=== PATIENT | female | born 1965 | race Caucasian/White ===

== ENCOUNTER 2018-03-31 05:25 | Day surgery (SDC) | payer OTHER, MEDICARE ==
[2018-03-29 14:35] LABS: ANION GAP 12.1 mmol/L (8-16); CARBON DIOXIDE 31.7 mmol/L (21.0-32.0); CREATININE - SERUM 1.1 mg/dL (0.6-1.3); POTASSIUM - SERUM 3.8 mmol/L (3.5-5.1)
[2018-03-29 14:38] LABS: CALCIUM 9.8 mg/dL (8.5-10.1)
[2018-03-29 14:39] LABS: BASOPHILS 0.2 % (0-2); EOSINOPHILS 1.1 % (0-7); HEMATOCRIT 39.6 % (36.0-48.0); HEMOGLOBIN 12.9 g/dL (12-16); IMMATURE GRANULOCYTES 0.1 % (0-5); LYMPHOCYTES 45.7 % (15-50); MCH 27.3 pg (26.0-34.0); MCHC 32.6 g/dL (31.0-37.0); MCV 83.7 fL (80.0-100.0); MEAN PLATELET VOLUME 9.9 fL (7.4-10.4); MONOCYTES 9.2 % (2-11); NEUTROPHILS 43.7 % (40-80); RBC 4.73 10x6/uL (4.00-5.40); RDW 15.4 % (11.5-14.5); WBC 8.3 10x3/uL (4.8-10.8)
[2018-03-29 14:52] LABS: PLATELET COUNT 415 10x3/uL (130-400)
[~2018-03-31] VITALS: Ht 165.1 cm; Wt 86.6 kg
[~2018-03-31 05:25] MED LIST: HYDROCHLOROTH12.5 M1 PO; KLONOPIN1 MG PO; LYRICA100 MG PO; NEURONTIN800 MG PO; OMEPRAZOLE20 M1 PO; OXYCONTIN10 MG PO; OXYCONTIN30 MG PO; PROZAC40 MG PO; TENORMIN25 MG PO; WELLBUTRIN SR150 MG PO; XTAMPZA 36 MG PO; ZANTAC150 MG PO
[2018-03-31 06:26] VITALS: BP 112/61; Ht 165.1 cm; Wt 86.6 kg
[2018-03-31 08:20] LABS: HCG URINE NEGATIVE (NEGATIVE)
--- NOTE | 2018-03-31 13:00 | NUR ---
REC'D FROM [facility]. FAMILY AT BEDSIDE. RELATES SHE NEEDS TO URINATE. PLACED ON BEDPAN HOWEVER EXPLAINED SHE HAS VAGINAL PACKING AND THAT GIVES THE FEELING OF NEEDING TO URINATE.
--- NOTE | 2018-03-31 13:10 | NUR ---
UNABLE TO URINATE. FL TRAY BROUGHT TO PATIENT AND AND ICE FOR A DR ARRIOLA.
--- NOTE | 2018-03-31 13:15 | NUR ---
DR SPRINGER HERE. RELATES SHE WILL REMOVE THE VAGINAL PACKING. INFORMED DR GORMAN 10/09 AFTER RECEIVING DILAUDID 2MG IN RR. DR SPRINGER RELATES DUE TO HER CHRONIC PAIN HER HOME PAIN [facility] WILL MANAGE HER PAIN BETTER THAN WHAT SHE WOULD RECEIVE HERE.
--- NOTE | 2018-03-31 13:37 | OP ---
PATIENT NAME: YON ROBIN MEDICAL RECORD: [id number] :65 LOCATION:[facility] ADMISSION DATE: SURGEON: DEA CUELLAR MD DATE OF OPERATION: 03/31/2018 SURGEON: Dea Cuellar MD PERFORMANCE INSTRUCTOR: Riana Aguila MD ANESTHESIA: General anesthesia by Bora Pringle CRNA DIAGNOSIS: Female stress urinary incontinence. PROCEDURES: Cystoscopy, pubovaginal sling with [employer] Obtryx mesh. FINDINGS: On cystoscopy, single ureteral orifices bilaterally. Sutures from her vaginal cuff closure have indented the posterior wall of the bladder. No injury to the bladder seen. BLOOD LOSS: 50 mL. CLINICAL HISTORY: This is a 52-year-old female, G2, P2, A0. Dr. Aguila will be performing a hysterectomy today. At the same time, the patient wished to have correction of her stress incontinence with a pubovaginal sling. Dr. Aguila has completed the operation. She now comes to have the pubovaginal sling inserted. The patient, when I examined her in the office, did have urethral hypermobility with stress incontinence on coughing and straining. SHE IS ALLERGIC TO PENICILLIN, SULFA, NSAIDS, AND STATINS. Dr. Aguila has already given a perioperative IV antibiotics. DESCRIPTION OF PROCEDURE: The patient was already in [facility] and she was under general anesthetic. A Phillips catheter was in the bladder, put to bag drainage. I placed a weighted speculum to hold the posterior vaginal wall down. The labia majora were retracted laterally using stay sutures of #2 nylon. These were anchored to the medial thighs. The anterior vaginal wall was infiltrated using Pitressin solution. Twenty units of Pitressin were dissolved in 100 mL of injectable normal saline. The solution was used for hydrodissection of the anterior vaginal wall in the periurethral region. A T-shaped incision was made in the anterior vaginal wall. The crossbar of the T was about 1 cm from the urethral meatus. The vertical bar of T went along the anterior vaginal wall midline. The dissection through the pubocervical fascia extended laterally until we cleared off the obturator membrane on each side. We are going for the anterior apex of the obturator membrane. We then landmarked for the placement of the trocars. This was just inferior to the insertion of the adductor longus muscle onto the descending pubic ramus. A stab incision was made here at each point using a #15 blade. The helical trocars were then passed behind the descending pubic ramus and through the anterior apex of the obturator membrane. Then, it was brought out through the vaginal dissection space. The graft arms were then attached to the tips of the helical trocars and the helical trocars were retracted by spinning the back and this resulted in transobturator passage of the 2 graft arms. There was a tab on the midpoint of the graft, which we placed under the mid urethra. The Phillips catheter was then removed and we performed cystoscopy. This showed no injury to the bladder from our trocar passage. There are some areas in the posterior bladder wall, where most likely the bladder muscle has been involved in the closure of the vaginal cuff. OPERATIVE REPORT [id number] YON ROBIN However, no perforation of the sutures into the bladder itself was seen. Dr. Aguila's says that these sutures are absorbable in any case. The ureteral orifices were seen to admit jets of urine on both sides. No bladder tumors were seen. At this point, the bladder was filled to capacity using the normal saline from the cystoscope. The scope was then removed. As we applied manual pressure suprapubically, we could elicit leakage of urine per the urethra. Gradually tension was applied on the pubovaginal sling until finally we reached a point, which no further manual suprapubic pressure could cause leakage per the urethra. At this point, a Loren clamp was placed between the urethra and the pubovaginal sling. The clear plastic sheath material on each of the graft arms was removed entirely. The graft arms were then cut where they exited the skin in the inguinal region. These stab incisions were closed using simple interrupted 4-0 Monocryl. I then checked the condition of the graft under the urethra. It had tended to retract a bit more of the bladder neck. I also made sure that it lay flat. In order to keep it under the mid urethra, I tacked it to the periurethral muscle with a 3-0 Vicryl suture along the anterior edge of the graft. We then irrigated out the wound and closed the vaginal incision transversely using a running 4-0 Monocryl. The Phillips catheter was then placed back into the bladder to drain the bladder. It was then removed again. The vagina was packed using Kerlix infiltrated with estrogen cream for vaginal packing. This will be removed prior to her going home today. I will see her in followup in about 1 weeks' time. TRANSINT:[id number] Voice Confirmation ID: [id number] DOCUMENT ID: [id number] DEA CUELLAR MD at 1337 CC: [id number] DICTATION DATE: 03/31/18 1156 [facility] KNITTER: 03/31/18 [id number] [place] [address]
--- NOTE | 2018-03-31 13:55 | NUR ---
BACK TO BED FROM BATHROOM. UNABLE TO VOID. DROWSY AND IS NOT EATING AT THIS TIME. RATES PAIN 4/10 AT THIS TIME.
--- NOTE | 2018-03-31 14:00 | NUR ---
DR SPRINGER HAS NOT REMOVED VAGINAL PACKING. NO DC ORDERS RECEIVED AT THIS TIME. SLEEPING. AT BEDSIDE.
--- NOTE | 2018-03-31 15:40 | NUR ---
DR SPRINGER HERE. REMOVED PACKING. OK TO DC WHEN CRITERIA MET.
--- NOTE | 2018-03-31 15:50 | NUR ---
UP TO BATHROOM. VOIDED WITHOUT DIFFICULTY.
--- NOTE | 2018-03-31 15:58 | NUR ---
IV DC'D WITH CATHETER INTACT.
--- NOTE | 2018-03-31 16:06 | NUR ---
PT VOIDED BUT RELATES SHE STILL FILLS THOUGH SHE NEEDS TO VOID. DR SPRINGER CALLED AND ORDERED A BLADDER SCAN.
--- NOTE | 2018-03-31 16:22 | NUR ---
CALLED DR SPRINGER WITH URINE [employer] OF [phone]. RELATES SHE IS GOING TO CALL DR CUELLAR.
--- NOTE | 2018-03-31 16:23 | NUR ---
SPOKE WITH DR SPRINGER AND RELATES DR CUELLAR SAYS DC HOME WITH HAGEN WITH LEG BAG.
--- NOTE | 2018-03-31 16:30 | NUR ---
HAGEN CATHETER INSERTED USING STERILE TECHNIQUE AND ATTACHED TO A LEG BAG. WRITTEN AND VERBAL DC INST ALONG WITH DEMONSTRATION SHOWN TO PT AND SPOUSE ON TECHNIQUE FOR EMPTYING BAG AND INSTRUCTION SHEET GIVEN FOR HAGEN CATHETER CARE.
--- NOTE | 2018-03-31 16:44 | NUR ---
C/O PAIN 09/08 AND WANTING SOMETHING FOR THE RIDE HOME. PERCOCET 10/325MG PO ADMINISTERED PER ORDERS.
--- NOTE | 2018-03-31 16:50 | NUR ---
WRITTEN AND VERBAL DC INST. GIVEN TO PT ALONG WITH RX, VERBALIZED UNDERSTANDING.
--- NOTE | 2018-03-31 17:00 | NUR ---
DC'D HOME WITH FAMILY VIA PRIVATE VEHICLE. TAKEN TO VEHICLE VIA WC. STABLE AT TIME OF DC.
== END 2018-03-31 17:00 | disposition home or self-care (01) ==
LOC: D.OPS 05:25 → D.PAN 08:30 → D.OPS 08:30
PROVIDERS: Anesthesiology; Obstetrics & Gynecology
DX: N84.0 Polyp of corpus uteri (principal); D25.9 Leiomyoma of uterus, unspecified; N94.89 Other specified conditions associated with female genital organs and menstrual cycle; N93.8 Other specified abnormal uterine and vaginal bleeding; N39.3 Stress incontinence (female) (male); N95.0 Postmenopausal bleeding; F32.9 Major depressive disorder, single episode, unspecified; R68.82 Decreased libido; I10 Essential (primary) hypertension; G47.00 Insomnia, unspecified; K75.81 Nonalcoholic steatohepatitis (NASH); D64.9 Anemia, unspecified; Z88.6 Allergy status to analgesic agent; Z88.0 Allergy status to penicillin; Z88.2 Allergy status to sulfonamides; Z79.891 Long term (current) use of opiate analgesic; Z79.899 Other long term (current) drug therapy; Z01.812 Encounter for preprocedural laboratory examination

== ENCOUNTER → 2018-04-07 18:22 | Outpatient (CLI) | payer OTHER, MEDICARE ==
[2018-03-31 06:26] VITALS: BMI 32.6
== END | disposition home or self-care (01) ==
LOC: D.LABREF 18:22
DX: D72.829 Elevated white blood cell count, unspecified (principal); R31.9 Hematuria, unspecified